=== PATIENT | female | born 1940 | race Caucasian/White ===

== ENCOUNTER → 2016-12-28 | Outpatient (CLI) | payer OTHER ==
[~2016-12-28] MED LIST: ASPIRIN PO; CENTRUM SILVER PO; CITRACAL200 MG PO; CRESTOR5 MG PO; FERROUS SULFATE PO; FISH OIL 1,2001 CAP PO; FOSAMAX PO; FOSAMAX70 MG PO; LODINE PO; MONDOXYNE NL100 MG PO; MULTI-VIT/MIN P1 TAB PO; NAPROXEN PO; PRILOSEC PO; ROBITUSSIN A-C S5 ML PO; ZANTAC150 M1 PO; ZETIA PO
--- NOTE | ~2016-12-28 | BD1 ---
[facility] A Service of [facility] RADIOLOGY TEXT RESULTS PATIENT: JODI LIZAMA LOCATION: SN : 40 UNIT #: [id number] AGE: [address]: Domingo Hernandez MD SEX: F ORDER DR: [id number] [address] [address] [id number] O MR#: [id number] Acc #: [id number] NAME: JODI LIZAMA : 1940 SEX: F STUDY DATE/TIME: 12/28/2016 11:08 UNIT: [facility] ROOM: STUDY DESCRIPTION: BD Dexa Bone Dens 1+ Site Attending Physician: Domingo Hernandez M.D. Referring Physician: Domingo Hernandez M.D. Ordering Physician: Domingo Hernandez M.D. Primary Care Physician: Domingo Hernandez M.D. MEDICAL IMAGING REPORT This report is preliminary unless electronic signature is present. EXAM DXA scan, 12/28/2016. HISTORY Status post menopause with no hormone replacement therapy. Osteopenia. Arthritis. Smoking history for 10 years. FINDINGS Bone mineral density in the lumbar spine from L1 through L4 is 0.835 g/cm2 which is 2.9 standard deviations below the mean when compared to the young adult reference population which is characteristic of osteoporosis. This is 1 standard deviation below the mean when compared to the age-matched population. Compared with 08/06/2012, there has been a decrease in bone mineral density in the lumbar spine of 5.9%. Bone mineral density in the left femoral neck was 0.686 g/cm2 which is 2.5 standard deviations below the mean when compared to the young adult reference population which is characteristic of osteoporosis. This is 0.5 standard deviations below the mean when compared to the age-matched population. Compared with 08/06/2012, , there has been a decrease in bone mineral density in the left hip of 0.4%. Bone mineral density in the right femoral neck was 0.677 g/cm2 which is 2.6 standard deviations below the mean when compared to the young adult reference population which is characteristic of osteoporosis. This is 0.5 standard deviations below the mean when compared to the age-matched population. Compared with 08/06/2012 there has been an increase in bone mineral density in the right hip of 2.9%. IMPRESSION Bone mineral density in the lumbar spine and the hips bilaterally characteristic of osteoporosis. Compared with 08/06/2012, there has been a decrease in bone mineral density in the lumbar spine and left hip and an increase in bone mineral density in the right hip. [facility] A Service of [facility] RADIOLOGY TEXT RESULTS PATIENT: JODI LIZAMA LOCATION: [facility] : 40 UNIT #: [id number] AGE: [address]: Domingo Hernandez MD SEX: F ORDER DR: Dictated by... Brian Oliver M.D. THIS IS AN ELECTRONICALLY VERIFIED REPORT Brian Oliver M.D. at 12/28/2016 4:53 PM Jerzy TD: 12/28/2016 15:38 JOB #: [id number] MEDICAL IMAGING REPORT Page 1 of 1
--- NOTE | ~2016-12-28 | US37 ---
[facility] A Service of [facility] RADIOLOGY TEXT RESULTS PATIENT: JODI LIZAMA LOCATION: [facility]IV : 40 UNIT #: [id number] AGE: [address]: Domingo Hernandez MD SEX: F ORDER DR: [id number] [address] [address] [id number] O MR#: [id number] Acc #: [id number] NAME: JODI LIZAMA : 1940 SEX: F STUDY DATE/TIME: 12/28/2016 10:40 UNIT: [facility] ROOM: STUDY DESCRIPTION: US Carotid W/Doppler Bilateral Attending Physician: Domingo Hernandez M.D. Referring Physician: Domingo Hernandez M.D. Ordering Physician: Domingo Hernandez M.D. Primary Care Physician: Domingo Hernandez M.D. MEDICAL IMAGING REPORT This report is preliminary unless electronic signature is present. DATE OF EXAMINATION 12/28/2016 EXAM Bilateral carotid duplex. CLINICAL HISTORY Carotid stenosis. FINDINGS There is an incidental finding of a thyroid mass, 1.6 x 2 cm on the right side. There is patent flow seen throughout the right common carotid, internal carotid, and external carotid arteries. There is no significant atherosclerotic noted throughout the carotid vasculature. The right common carotid artery peak velocity is 65 cm/sec. The right internal carotid artery peak systolic/end-diastolic velocities are: Proximal 63/22 cm/sec, mid 89/35 cm/sec, distal 70/29 cm/sec. The right external carotid artery peak velocity is 69 cm/sec, and vertebral artery 39 cm/sec. There is patent flow seen throughout the left common carotid, internal carotid, and external carotid arteries. There is no significant atherosclerosis noted throughout the carotid vasculature. The left common carotid artery peak velocity is 71 cm/sec. The left internal carotid artery peak systolic/end-diastolic velocity are: Proximal 64/21 cm/sec, mid 75/23 cm/sec, distal 70/27 cm/sec. The left external carotid artery peak velocity is 51 cm/sec and vertebral artery 42 cm/sec. The right ICA/CCA ratio is 1.35. The left ICA ratio is 1.07. IMPRESSION [facility]. [facility] A Service of [facility] & [facility] RADIOLOGY TEXT RESULTS PATIENT: JODI LIZAMA LOCATION: [facility] : 40 UNIT #: [id number] AGE: [address]: Domingo Hernandez MD SEX: F ORDER DR: 1. Normal evaluation of the right carotid artery with no significant atherosclerosis. 2. Normal evaluation of the left carotid artery with no significant atherosclerosis. 3. Incidental finding of a right-sided thyroid mass measuring 1.6 x 2.0 cm. Dedicated thyroid ultrasound is recommended for further evaluation. Dictated by... Maury Sol M.D. THIS IS AN ELECTRONICALLY VERIFIED REPORT Maury Sol M.D. at 12/29/2016 7:44 AM SANJANA/rah TD: 12/28/2016 14:47 JOB #: [id number] MEDICAL IMAGING REPORT Page 1 of 1
== END | disposition home or self-care (01) ==
LOC: SNIV 10:13
DX: M81.0 Age-related osteoporosis without current pathological fracture (principal); I65.23 Occlusion and stenosis of bilateral carotid arteries; M85.851 Other specified disorders of bone density and structure, right thigh; Z78.0 Asymptomatic menopausal state
CPT/HCPCS: 77080; 93880

== ENCOUNTER → 2017-01-21 | Outpatient (CLI) | payer OTHER ==
--- NOTE | ~2017-01-21 | US128 ---
[id number] [address] [id number] O MR#: [id number] Acc #: [id number] NAME: JODI LIZAMA : 1940 SEX: F STUDY DATE/TIME: 01/21/2017 11:22 UNIT: [facility] ROOM: STUDY DESCRIPTION: US Thyroid Attending Physician: Domingo Hernandez M.D. Referring Physician: Domingo Hernandez M.D. Ordering Physician: Domingo Hernandez M.D. Primary Care Physician: Domingo Hernandez M.D. MEDICAL IMAGING REPORT This report is preliminary unless electronic signature is present. EXAM Ultrasound of thyroid nodule INDICATION Incidental finding on prior carotid Doppler on December 28, 2016. This demonstrated a right-sided thyroid mass. TECHNIQUE Conde-scale and color Doppler sonographic images were obtained through the thyroid gland. FINDINGS Right lobe of the thyroid gland measures 1.7 x 2.7 x 3.4 cm; left lobe measures 1.5 x 1.3 x 3.7 cm. Isthmus measures about 5 mm in thickness. This patient has a mixed solid and cystic nodule identified within the right lobe of the thyroid gland, measuring 1.4 x 1.6 x 1.8 cm. There is also a hypoechoic nodule which is seen inferiorly within the right lobe of the thyroid gland, measuring up to 0.9 x 1.0 x 1.2 cm. A probable cyst is seen within the left lobe the thyroid gland, measuring up to 3 x 5 x 4 mm. Overall, I think thyroid parenchyma is somewhat heterogeneous. IMPRESSION 1. Patient is noted to have a mixed solid and cystic nodule within the right lobe of thyroid gland which corresponds to the previously identified nodule from the carotid Doppler from December 28, 2016. At this point, it does not meet size criteria for percutaneous sampling. The patient does have an additional hypoechoic solid nodule seen within the inferior pole of the right lobe of the thyroid gland measuring 0.9 x 1.0 x 1.2 cm. I would suggest a followup ultrasound in 6 months to document stability of both nodules. 2. Probable cyst seen within the left lobe of the thyroid gland. Dictated by... Aarti Boyle M.D. THIS IS AN ELECTRONICALLY VERIFIED REPORT Aarti Boyle M.D. at 01/23/2017 8:36 AM KATHLEEN/bobo TD: 01/22/2017 11:47 JOB #: [id number] MEDICAL IMAGING REPORT Page 1 of 1
== END | disposition home or self-care (01) ==
LOC: SGUS 10:59
DX: E04.1 Nontoxic single thyroid nodule (principal); E04.2 Nontoxic multinodular goiter
CPT/HCPCS: 76536